=== PATIENT | female | born 1990 | race Caucasian/White ===

== ENCOUNTER 2018-09-17 18:28 | Emergency (ER) | payer OTHER ==
[2018-09-17 18:35] VITALS: RESP 18; TEMP 98.7
--- NOTE | 2018-09-17 18:44 | ED ---
General Adult HPI - General Chief complaint: Skin/Abscess/Foreign Body Stated complaint: Foreign object in nose Time Seen by Provider: 09/17/18 18:36 Source: patient Mode of arrival: ambulatory Limitations: no limitations - History of Present Illness Initial comments: Dictation was produced using [employer] dictation software. please excuse any grammatical, word or spelling errors. Chief Complaint: 27-year-old female with no significant past medical history presents after ingestion or inhalation of nasal piercing. History of Present Illness: 27 Old female. Earlier today she was getting it deep breath. She dislodged her nasal piercing and felt as though it was inhaled. She denies. Some coughing initially. She reports that it feels like it's in her throat. However she is not sure if she swallowed it or inhaled it. Patient tried to force vomiting to dislodged the item. She also tried to swallow fluids in order to pass it down. She feels as though it stuck in her throat. The ROS documented in this emergency department record has been reviewed and confirmed by me. Those systems with pertinent positive or negative responses have been documented in the HPI. All other systems are other negative and/or noncontributory. PHYSICAL EXAM: General Impression: Alert and oriented x3, not in acute distress HEENT: Normocephalic atraumatic, extra-ocular movements intact, pupils equal and reactive to light bilaterally, mucous membranes moist. Cardiovascular: Heart regular rate and rhythm, S1&S2 audible, no murmurs, rubs or gallops Chest: Lungs clear to auscultation bilaterally, no rhonchi, no wheeze, no rales Abdomen: Bowel sounds present, abdomen soft, non-tender, non-distended, no organomegaly Musculoskeletal: Pulses present and equal in all extremities, no peripheral edema Motor: no focal deficits noted Neurological: CN II-XII grossly intact, no focal motor or sensory deficits noted Skin: Intact with no visualized rashes Psych: Normal affect and mood ED course: 27-year-old female with foreign body ingestion in the neck. Vital signs upon arrival are within acceptable limits. No wheezing heard on lung auscultation. Patient is well-appearing. No drooling or respiratory distress. Patient otherwise is well-appearing. X-ray of the neck and chest did not visualize any metallic foreign bodies. Abdominal x-ray was performed showing telemetry foreign body in the bowel. Patient otherwise has normal abdominal exam. Patient denies any abdominal pain. Patient clear for discharge. She tiarra uld expect to have this metallic foreign body in her stool over the next 12-24 hours. Patient told that she should return to the emergency department immediately should she experience worsening abdominal pain, fever. Patient understandable agreeable to plan. - Related Data Home Medications Medication Instructions Recorded Confirmed Temazepam [Restoril] 30 mg PO HS 09/17/18 09/17/18 Allergies Allergy/AdvReac Type Severity Reaction Status Date / Time gluten Allergy Unknown Verified 09/17/18 18:57 codeine AdvReac Nausea & Verified 09/17/18 18:57 Vomiting Review of Systems ROS Statement: Those systems with pertinent positive or pertinent negative responses have been documented in the HPI. ROS Other: All systems not noted in ROS Statement are negative. Past Medical History Additional Past Medical History / Comment(s): celiac disease, migraines Past Surgical History: No Surgical Hx Reported Past Psychological History: Depression, PTSD Smoking Status: Current some day smoker Past Alcohol Use History: Occasional Past Drug Use History: Marijuana General Exam Limitations: no limitations Course Vital Signs 09/17/18 18:32 Temperature 98.7 F Pulse Rate 81 Respiratory 18 Rate Blood Pressure 118/75 O2 Sat by Pulse 100 Oximetry Disposition Clinical Impression: Foreign body Disposition: HOME SELF-CARE Condition: Good Instructions (If sedation given, give patient instructions): Foreign Body Ingestion (ED) Is patient prescribed a controlled substance at d/c from ED?: No Referrals: Nonstaff,Physician [Primary Care Provider] - 1-2 days Time of Disposition: 20:05
--- NOTE | 2018-09-17 19:28 | XR ---
EXAMINATION TYPE: XR chest 2V DATE OF EXAM: 09/17/2018 COMPARISON: NONE HISTORY: Inhaled nose ring TECHNIQUE: Frontal and lateral views of the chest are obtained. FINDINGS: Heart and mediastinum are normal. Lungs are clear. Diaphragm is normal. There is no sign o f radiopaque foreign body. IMPRESSION: Normal chest
--- NOTE | 2018-09-17 19:30 | XR ---
EXAMINATION TYPE: XR soft tissue neck DATE OF EXAM: 09/17/2018 COMPARISON: NONE HISTORY: Nose ring healed TECHNIQUE: 2 views FINDINGS: There is an 8 mm metallic foreign body in the anterior nasopharynx apparently on the right side. The prevertebral soft tissues appear normal. Epiglottis is normal. Tonsils and adenoids appear normal. IMPRESSION: There is metallic foreign body in the anterior right side nasopharynx.
--- NOTE | 2018-09-17 20:20 | XR ---
EXAMINATION TYPE: XR abdomen 1V DATE OF EXAM: 09/17/2018 COMPARISON: NONE HISTORY: Foreign body. Swallowed a ring TECHNIQUE: Single view FINDINGS: There is a U shaped metallic density projected over the mid pelvis on the right of midline. The bowel gas pattern is normal. There is no sign of intestinal obstruction or pneumoperitoneum. Fec al pattern is normal. Lung bases are clear. IMPRESSION: Small 13 mm metallic foreign body in the pelvis.
[2018-09-17 20:41] VITALS: BP 110/89; PULSE 78
== END 2018-09-17 20:42 | disposition home or self-care (01) ==
LOC: EC 18:28
DX: T18.8XXA Foreign body in other parts of alimentary tract, initial encounter (principal); F17.200 Nicotine dependence, unspecified, uncomplicated; Z79.899 Other long term (current) drug therapy; Z91.018 Allergy to other foods; Z88.5 Allergy status to narcotic agent
CPT/HCPCS: 70360; 71046; 74018; 99283

== ENCOUNTER 2021-07-06 10:58 | Emergency (ER) | payer OTHER ==
[2021-07-06 11:04] VITALS: RESP 18
--- NOTE | 2021-07-06 11:43 | XR ---
EXAMINATION TYPE: XR knee complete LT DATE OF EXAM: 07/06/2021 CLINICAL HISTORY: Pain after injury. TECHNIQUE: Three views of the left knee are obtained. COMPARISON: None. FINDINGS: There is no acute fracture/dislocation evident in left knee. The tri-compartment joint sp aces appear within normal limits. Oval 6 mm sclerotic focus anterior distal femur favors benign bone island. The overlying soft tissue appears unremarkable. IMPRESSION: There is no acute fracture or dislocation in the left knee.
[2021-07-06 11:44] VITALS: PULSE 75
--- NOTE | 2021-07-06 11:52 | ED ---
Lower Extremity Injury HPI - General Chief Complaint: Extremity Injury, Lower Stated Complaint: 11 wks preg/knee pain/injury week ago Time Seen by Provider: 07/06/21 11:11 Source: patient, RN notes reviewed Mode of arrival: ambulatory Limitations: no limitations - History of Present Illness Initial Comments: 30-year-old female presents emergency department to complaint a left knee pain. Patient states she is walking on some steps about a little pop, she had twist hernia that time. She continues to have pain over one week. She states when she straightens on her knee she feels some pain in the medial aspect. Patient has any significant swelling no bruising no paresthesias no other complaints. - Related Data Home Medications Medication Instructions Recorded Confirmed Temazepam [Restoril] 30 mg PO HS 09/17/18 09/17/18 Allergies Allergy/AdvReac Type Severity Reaction Status Date / Time gluten Allergy Unknown Verified 07/06/21 11:02 codeine AdvReac Nausea & Verified 07/06/21 11:02 Vomiting Review of Systems ROS Statement: Those systems with pertinent positive or pertinent negative responses have been documented in the HPI. ROS Other: All systems not noted in ROS Statement are negative. Past Medical History Additional Past Medical History / Comment(s): celiac disease, migraines Past Surgical History: No Surgical Hx Reported Past Psychological History: Depression, PTSD Smoking Status: Never smoker Past Alcohol Use History: None Reported Past Drug Use History: Marijuana General Exam Limitations: no limitations General appearance: alert, in no apparent distress Head exam: Present: atraumatic, normocephalic, normal inspection Eye exam: Present: normal appearance, PERRL, EOMI. Absent: scleral icterus, c onjunctival injection, periorbital swelling ENT exam: Present: normal exam, mucous membranes moist Respiratory exam: Present: normal lung sounds bilaterally. Absent: respiratory distress, wheezes, rales, rhonchi, stridor Cardiovascular Exam: Present: regular rate, normal rhythm, normal heart sounds. Absent: systolic murmur, diastolic murmur, rubs, gallop, clicks Extremities exam: Present: other (Left knee no laxity noted, no pain with valgus varus, anterior posterior drawer is negative. Patient is neurovascular intact no tenderness or below or above) Course Vital Signs 07/06/21 07/06/21 11:02 11:43 Temperature 98 F Pulse Rate 73 75 Respiratory 18 18 Rate Blood Pressure 108/71 134/74 O2 Sat by Pulse 100 98 Oximetry Medical Decision Making - Medical Decision Making X-rays negative for acute abnormality. Patient symptoms more consistent with a medial knee sprain. Patient will follow-up with orthopedics as needed advised to wear knee brace or return for any worsening symptoms. Disposition Clinical Impression: Left knee sprain Disposition: HOME SELF-CARE Condition: Stable Instructions (If sedation given, give patient instructions): Knee Sprain (ED) Additional Instructions: Please return to the Emergency Department if symptoms worsen or any other concerns. Is patient prescribed a controlled substance at d/c from ED?: No Referrals: Nonstaff,Physician [Primary Care Provider] - 1-2 days Neisha Guadalupe DO [Doctor of Osteopathic Medicine] - 1-2 days Time of Disposition: 11:52
[2021-07-06 12:44] VITALS: BP 120/67; TEMP 97.9
== END 2021-07-06 12:10 | disposition home or self-care (01) ==
LOC: EC 10:58
DX: O9A.211 Injury, poisoning and certain other consequences of external causes complicating pregnancy, first trimester (principal); S83.92XA Sprain of unspecified site of left knee, initial encounter; Z91.018 Allergy to other foods; Z88.5 Allergy status to narcotic agent; Z3A.11 11 weeks gestation of pregnancy; X50.9XXA Other and unspecified overexertion or strenuous movements or postures, initial encounter
CPT/HCPCS: 99283

== ENCOUNTER 2024-03-15 05:22 | Emergency (ER) | payer OTHER ==
--- NOTE | 2024-03-15 06:17 | ED ---
URI HPI - General Chief Complaint: Upper Respiratory Infection Stated Complaint: Shortness of breath, Cough Time Seen by Provider: 03/15/24 06:15 Source: patient, RN notes reviewed Mode of arrival: ambulatory Limitations: no limitations - History of Present Illness Initial Comments: 33-year-old female presented to the ER with a chief complaint of sore throat and cough. Patient states she has 2 children at home and they attended daycare. States for past 24 hours she has been experiencing a dry barky cough and sore throat. She denies any fevers. Denies any difficulty breathing or wheezing. She has taken [id number] NyQuil without relief. Denies any nausea vomiting, abdominal pain, urinary complaints, chest pain replenishment. Patient believes she has croup - Related Data Home Medications Medication Instructions Recorded Confirmed Temazepam [Restoril] 30 mg PO HS 09/17/18 09/17/18 Previous Rx's Medication Instructions Recorded Amoxicillin 500 mg PO Q12HR #20 capsule 03/15/24 Allergies Allergy/AdvReac Type Severity Reaction Status Date / Time codeine AdvReac Nausea & Verified 07/06/21 11:02 Vomiting Review of Systems ROS Statement: Those systems with pertinent positive or pertinent negative responses have been documented in the HPI. ROS Other: All systems not noted in ROS Statement are negative. Past Medical History Additional Past Medical History / Comment(s): celiac disease, migraines History of Any Multi-Drug Resistant Organisms: None Reported Past Surgical History: No Surgical Hx Reported Past Psychological History: Depression, PTSD Smoking Status: Never smoker Past Alcohol Use History: None Reported Past Drug Use History: Marijuana General Exam Limitations: no limitations General appearance: alert, in no apparent distress ENT exam: Present: normal exam, normal oropharynx, mucous membranes moist, TM's normal bilaterally Neck exam: Present: normal inspection. Absent: tenderness, meningismus, lymphadenopathy Respiratory exam: Present: normal lung sounds bilaterally, other (barky cough). Absent: respiratory distress, wheezes, rales, rhonchi, stridor Cardiovascular Exam: Present: regular rate, normal rhythm, normal heart sounds. Absent: systolic murmur, diastolic murmur, rubs, gallop, clicks Extremities exam: Present: normal inspection, full ROM, normal capillary refill. Absent: tenderness, pedal edema, joint swelling, calf tenderness Neurological exam: Present: alert, oriented X3, CN II-XII intact Skin exam: Present: warm, dry, intact, normal color. Absent: rash Course Vital Signs 03/15/24 03/15/24 05:27 07:26 Temperature 97.7 F Pulse Rate 81 72 Respiratory 18 16 Rate Blood Pressure 100/70 O2 Sat by Pulse 100 Oximetry Medical Decision Making - Medical Decision Making Was pt. sent in by a medical professional or institution (, PA, [employer], urgent care, hospital, or half-way...) When possible be specific @ -No Did you speak to anyone other than the patient for history (EMS, parent, family, police, friend...)? What history was obtained from this source @ -No Did you review nursing and triage notes (agree or disagree)? Why? @ -I reviewed and agree with nursing and triage notes Were old charts reviewed (outside hosp., previous admission, EMS record, old EKG, old radiological studies, urgent care reports/EKG's, half-way records)? Report findings @ -No old charts were reviewed Differential Diagnosis (chest pain, altered mental status, abdominal pain women, abdominal pain men, vaginal bleeding, weakness, fever, dyspnea, syncope, headache, dizziness, GI bleed, back pain, seizure, CVA, palpatations, mental health, musculoskeletal)? @ -COVID, RSV, influenza, viral sinusitis, pneumonia this list is not meant to be all-inclusive EKG interpreted by me (3pts min.). @ -None done X-rays interpreted by me (1pt min.). @ -Chest x-ray interpreted by me showing swelling of the subglottic tissues concerning of laryngotracheobronchitis. No focal consolidations, pleural effusions or pneumothorax. CT interpreted by me (1pt min.). @ -None done U/S interpreted by me (1pt. min.). @ -None done What testing was considered but not performed or refused? (CT, X-rays, U/S, labs)? Why? @ -None What meds were considered but not given or refused? Why? @ -None Did you discuss the management of the patient with other professionals (professionals i.e. , ROSA, [employer], lab, RT, psych nurse, psych social worker, heating and refrigeration inspector, teacher, drug abuse resistance education officer, caseworker intake)? Give summary @ -No Was smoking cessation discussed for >3mins.? @ -No Was critical care preformed (if so, how long)? @ -No Were there social determinants of health that impacted care today? How? (Homelessness, low income, unemployed, alcoholism, drug addiction, transportation, low edu. Level, literacy, decrease access to med. care, [place] [facility], rehab)? @ -No Was there de-escalation of care discussed even if they declined (Discuss DNR or withdrawal of care, Hospice)? DNR status @ -No What co-morbidities impacted this encounter? (DM, HTN, Smoking, COPD, CAD, Cancer, CVA, ARF, Chemo, Hep., AIDS, mental health diagnosis, sleep apnea, morbid obesity)? @ -None Was patient admitted / discharged? Hospital course, mention meds given and route, prescriptions, significant lab abnormalities, going to OR and other pertinent info. @ - Discharged. 33 year old female presented to the ER with a chief complaint of cough and sore throat. History and physical exam completed. Vitals within normal limits. Patient in no signs of acute distress but does have a barky cough on exam. Otherwise exam unremarkable. Viral swabs negative. Strep positive. Chest x-ray interpreted by me showing swelling of the subglottic tissues concerning of laryngeal tracheobronchitis. No acute focal consolidations, pleural effusions or pneumothorax. Patient received p.o. Decadron and racemic epinephrine nebulizer in the ER for symptom control. Patient was started on amoxicillin for strep pharyngitis. I advised [id number] ibuprofen and Tylenol for symptom control. I also advised cool humidified air to help with symptoms. Advise close follow-up with PCP. Strict return parameters discussed. Patient discharged stable condition. Patient verbally expressed understanding agreement care plan. Case discussed with ED attending, Dr. Wise. Undiagnosed new problem with uncertain prognosis? @ -No Drug Therapy requiring intensive monitoring for toxicity (Heparin, Nitro, Insulin, Cardizem)? @ -No Were any procedures done? @ -No Diagnosis/symptom? @ -Laryngeotracheobronchitis/strep pharyngitis Acute, or Chronic, or Acute on Chronic? @ -Acute Uncomplicated (without systemic symptoms) or Complicated (systemic symptoms)? @ -Uncomplicated Side effects of treatment? @ -No Exacerbation, Progression, or Severe Exacerbation? @ -No Poses a threat to life or bodily function? How? (Chest pain, USA, CT, pneumonia, PE, COPD, DKA, ARF, appy, cholecystitis, CVA, Diverticulitis, Homicidal, Suicidal, threat to staff... and all critical care pts) @ -No - Lab Data Lab Results 03/15/24 03/15/24 Range/Units 05:31 05:31 Influenza Type A (PCR) Not Detected (Not Detectd) Influenza Type B (PCR) Not Detected (Not Detectd) RSV (PCR) Not Detected (Not Detectd) SARS-CoV-2 (PCR) Not Detected (Not Detectd) Group A Strep (PCR) DETECTED A (Not Detectd) - Radiology Data Radiology results: report reviewed, image reviewed Disposition Clinical Impression: Croup, Strep pharyngitis Disposition: HOME SELF-CARE Condition: Stable Instructions (If sedation given, give patient instructions): Strep Throat (ED), Croup (ED) Additional Instructions: You may take [id number] ibuprofen and Tylenol for symptom control. Complete full course of antibiotics. I also recommend cool humidified air. Follow-up with PCP in the next 1 to 2 days. Return to the ER for any new or worsening concerns. Prescriptions: Amoxicillin 500 mg PO Q12HR #20 capsule Is patient prescribed a controlled substance at d/c from ED?: No Referrals: Calixto Escobar MD [Primary Care Provider] - 1-2 days Time of Disposition: 06:55
--- NOTE | 2024-03-15 06:31 | XR ---
EXAMINATION TYPE: XR chest 2V DATE OF EXAM: 03/15/2024 COMPARISON: 09/17/2018 HISTORY: Cough TECHNIQUE: Frontal and lateral views of the chest are obtained. FINDINGS: There is no focal air space opacity, pleural effusion, or pneumothorax seen. The cardiac silhouette size is within normal limits. The osseous structures are intact. IMPRESSION: No acute cardiopulmonary process. [facility], , 03/15/2024 6:28 AM
[2024-03-15] MEDS: dexAMETHasone 2 MG TAB PO STA (07:17)
[2024-03-15] MEDS: RACEPINEPHRINE 2.25% NEB 0.5 ML NEBU INHALATION STA (07:24)
[2024-03-15 07:34] VITALS: RESP 18
[2024-03-15 07:44] VITALS: BP 103/67; PULSE 71; TEMP 97.9
== END 2024-03-15 07:43 | disposition home or self-care (01) ==
LOC: EC 05:22
CPT/HCPCS: 71046; 87636; 87651; 94640; 99285